=== PATIENT | male | born 1960 | race Two or more races ===

== ENCOUNTER 2016-04-09 20:34 | Emergency (ER) | payer SELFPAY ==
[~2016-04-09] VITALS: Ht 182.9 cm; Wt 81.6 kg
[2016-04-09 20:41] VITALS: BP 127/78
== END 2016-04-09 21:30 | disposition left against medical advice (07) ==
LOC: ER 20:39
DX: Z53.21 Procedure and treatment not carried out due to patient leaving prior to being seen by health care provider (principal)
CPT/HCPCS: A4606; Z7610